=== PATIENT | male | born 1960 | race African-American/Black ===

== ENCOUNTER 2022-06-26 10:59 | Outpatient (CLI) | payer OTHER | END 2022-06-26 11:00 | disposition home or self-care (01) | LOC: CSHRAD 10:59 | PROVIDERS: ATTEND Student in an Organized Health Care Education/Training Program | DX: M54.50 Low back pain, unspecified (principal); M25.551 Pain in right hip; M16.11 Unilateral primary osteoarthritis, right hip | CPT/HCPCS: 72100 ==